=== PATIENT | female | born 1975 | race Caucasian/White ===

== ENCOUNTER 2016-09-09 22:12 | Inpatient (IN) | payer OTHER ==
[2016-09-09 22:55] LABS: BILIRUBIN NEGATIVE (NEGATIVE); BLOOD NEGATIVE Ery/uL (NEGATIVE); CLARITY CLEAR (CLEAR); COLOR YELLOW (YELLOW); GLUCOSE (U) NORMAL (NORMAL); HCT 36.5 % (37.0-47.0); HGB 12.7 g/dl (12.5-16.0); KETONE (U) NEGATIVE (NEGATIVE); LEUKOCYTES 1+ Leu/uL (NEGATIVE); MCH 31.4 pg (25.0-31.0); MCHC 34.8 g/dL (32.0-36.0); MCV 90.3 fL (78.0-100.0); MPV 12.1 fL (6.0-9.5); NITRITE NEGATIVE (NEGATIVE); PROTEIN NEGATIVE (NEGATIVE); RBC 4.04 M/uL (4.20-5.40); RDW 13.3 % (11.5-14.0); SPECIFIC GRAVITY <=1.005 (1.001-1.030); UROBILINOGEN 0.2 mg/dL (0.2-1.0); WBC 9.3 K/uL (4.0-10.5); pH 5.5 (5.0-9.0)
[2016-09-09 23:09] LABS: ALBUMIN 3.5 g/dL (3.5-5.0); BILIRUBIN - TOTAL 0.2 mg/dL (0.1-1.0); CREATININE 0.6 mg/dL (0.5-1.0); GLOBULIN (CALCULATION) 2.7 g/dL (2.2-4.2); POTASSIUM 4.1 mmol/L (3.5-5.1); TOTAL PROTEIN 6.2 g/dL (6.4-8.3)
[2016-09-11 16:20] LABS: MCH 31.7 pg (25.0-31.0); MCHC 34.3 g/dL (32.0-36.0); MCV 92.3 fL (78.0-100.0); RBC 3.79 M/uL (4.20-5.40); RDW 13.7 % (11.5-14.0); WBC 13.1 K/uL (4.0-10.5)
== END 2016-09-12 20:50 | disposition home or self-care (01) | DRG 775 ==
LOC: FOB 22:12
PROVIDERS: ADMIT Obstetrics & Gynecology
PROC: 3E033VJ Introduction of Other Hormone into Peripheral Vein, Percutaneous Approach (ICD-10-PCS; principal; 2016-09-09)
PROC: 4A1HX4Z Monitoring of Products of Conception, Cardiac Electrical Activity, External Approach (ICD-10-PCS; 2016-09-09)
PROC: 10E0XZZ Delivery of Products of Conception, External Approach (ICD-10-PCS; 2016-09-11)
PROC: 10907ZC Drainage of Amniotic Fluid, Therapeutic from Products of Conception, Via Natural or Artificial Opening (ICD-10-PCS; 2016-09-11)
PROC: 0HQ9XZZ Repair Perineum Skin, External Approach (ICD-10-PCS; 2016-09-11)
DX: O13.4 Gestational [pregnancy-induced] hypertension without significant proteinuria, complicating childbirth (principal); K42.9 Umbilical hernia without obstruction or gangrene; Z3A.40 40 weeks gestation of pregnancy; Z37.0 Single live birth; O09.43 Supervision of pregnancy with grand multiparity, third trimester; O09.523 Supervision of elderly multigravida, third trimester; Z3A.00 Weeks of gestation of pregnancy not specified; O70.0 First degree perineal laceration during delivery; O43.123 Velamentous insertion of umbilical cord, third trimester
CPT/HCPCS: 36415; 80053; 81001; 88307